=== PATIENT | female | born 1940 | race Caucasian/White ===

== ENCOUNTER 2022-05-06 06:46 | Inpatient (IN) | payer MEDICARE, OTHER ==
[~2022-05-06] VITALS: Ht 162.6 cm; Wt 68.2 kg
[~2022-05-06 06:46] MED LIST: CALCIUM PO; CHOL10002 PO; DOCU-28 PO; FERR-116 PO; HYDR-3965 PO; IBUP-1985 PO; MAGN400C PO; MULT-342 PO; RANI-648 PO; SIMV-45 PO; TRAV5DRO EACHEYE; TRIA1CAP88 PO; TRU BIOTICS PO; WALKERFR
[2022-05-06] MEDS ORDERED: albuterol 2.5 MG/3 ML nebule CONTNEB PRN (10:35)
[2022-05-06] MEDS ORDERED: methylPREDNISolone sod succ 125mg/2ml vial IV ONE (10:35)
[2022-05-06] MEDS ORDERED: magnesium 2GM in 50ml NS 50 ML IV ONE (10:35)
--- NOTE | 2022-05-06 11:02 | NUR ---
PT PLACED ON 2L NC, RA SAT 88-89%. DR. ADHIKARI MADE AWARE.
[2022-05-06] MEDS ORDERED: CefTRIAXone/D5W-Rocephin 1gm 50 ML IV ONE (11:10)
[2022-05-06 11:15] LABS: CLARITY,URINE CLEAR (Clear); COLOR,URINE YELLOW (Yellow); GLUCOSE, URINE NEGATIVE (Neg); KETONES,URINE NEGATIVE (Neg); LEUKOCYTE ESTERASE ,URINE NEGATIVE (Neg); NITRITES, URINE NEGATIVE (Neg); OCCULT BLOOD,URINE NEGATIVE (Neg); PH,URINE 5.5 (4.8-8.0); PROTEIN,URINE NEGATIVE (Neg); UROBILINOGEN,URINE 0.2 E.U/dL (0.2-1.0)
[2022-05-06 11:16] LABS: UA COLLECTION TYPE CLN CATCH MIDSTREAM
[2022-05-06 11:30] LABS: BASOPHILS % (AUTO) 0.5 % (0-1); EOSINOPHILS % (AUTO) 0.4 % (0-6); HEMATOCRIT 36.4 % (35.0-45.0); HEMOGLOBIN 12.7 g/dl (12.0-16.0); LYMPHOCYTES # (AUTO) 0.5 X10'3 (1.1-4.8); LYMPHOCYTES % (AUTO) 6.6 % (21-51); MEAN CORPUSCULAR HEMOGLOBIN 35.5 PG (27.0-31.0); MEAN CORPUSCULAR HGB CONC 34.9 g/dL (33.0-36.5); MEAN CORPUSCULAR VOLUME 101.8 FL (78-98); MEAN PLATELET VOLUME 7.2 FL (7.4-10.4); MONOCYTES # (AUTO) 0.8 X10'3 (0-0.9); MONOCYTES % (AUTO) 10.5 % (2-12); NEUTROPHILS # (AUTO) 6.3 X10'3 (1.8-7.7); PLATELET COUNT 392 X10'3 (140-440); RED BLOOD COUNT 3.58 X10'6 (4.20-5.60); RED CELL DISTRIBUTION WIDTH 13.4 % (11.5-14.5); WHITE BLOOD COUNT 7.7 X10'3 (4.5-11.0)
[2022-05-06 11:43] LABS: ALANINE AMINOTRANSFERASE 18 U/L (12-78); ALBUMIN 3.3 G/DL (3.4-5.0); ALBUMIN/GLOBULIN RATIO 0.9 (1.1-1.5); ALKALINE PHOSPHATASE 88 IU/L (46-116); ANION GAP 12 (8-16); ASPARTATE AMINO TRANSFERASE 25 U/L (10-37); BILIRUBIN,TOTAL 0.4 MG/DL (0.1-1.0); BLOOD UREA NITROGEN 25 MG/DL (7-18); CALCIUM 8.9 MG/DL (8.5-10.1); CHLORIDE 94 MMOL/L (99-107); CREATININE 1.47 MG/DL (0.40-0.90); GLUCOSE 147 MG/DL (70-104); MAGNESIUM 2.2 MG/DL (1.5-2.4); SODIUM 134 MMOL/L (135-145); TOTAL CARBON DIOXIDE 28.4 MMOL/L (24-32); TOTAL PROTEIN 6.8 G/DL (6.4-8.2); eGFR 34 ML/MIN
[2022-05-06 11:47] LABS: POTASSIUM 2.8 MMOL/L (3.5-5.1)
[2022-05-06] MEDS ORDERED: POTASSIUM BICARB 20meq eff tab 20 MEQ TABLET.EFF PO STA (11:55)
[2022-05-06] MEDS ORDERED: mag hydrox/Alum hydrox/simeth 30ml oral suspension PO PRN (14:15)
[2022-05-06] MEDS ORDERED: potassium CL 10mEq/100ml bag 100 ML IV PRN (14:15)
[2022-05-06] MEDS ORDERED: furosemide 10 MG/1 ML 10ml inj IV ONE (14:15)
[2022-05-06] MEDS ORDERED: PERFLUTREN PROTEIN-A MICROSPHR (Optison) 0.22 MG/ML 3ML VIAL IV ONE (14:15)
[2022-05-06] MEDS ORDERED: acetaminophen 325mg tablet PO PRN (14:15)
[2022-05-06] MEDS ORDERED: magnesium 2GM in 50ml NS 50 ML IV PRN (14:15)
[2022-05-06] MEDS ORDERED: ondansetron/PF 4mg/2ml inj IV PRN (14:15)
[2022-05-06] MEDS ORDERED: magnesium 4gm in 100ml NS 100 ML IV PRN (14:15)
[2022-05-06] MEDS ORDERED: magnesium hydroxide 30ml (MOM) UD suspension PO PRN (14:15)
[2022-05-06] MEDS ORDERED: POTASSIUM BICARB 20meq eff tab 20 MEQ TABLET.EFF PO PRN (14:15)
[2022-05-06] MEDS ORDERED: magnesium Cl slow-release 64mg tablet PO PRN (14:15)
[2022-05-06] MEDS ORDERED: METO25TA6 PO (14:47)
[2022-05-06] MEDS ORDERED: ALBU17AE26 INH (14:47)
[2022-05-06] MEDS ORDERED: ALLO100T PO (14:47)
[2022-05-06] MEDS ORDERED: HYDR500C2 PO (14:48)
[2022-05-06] MEDS: ipratropium/albuterol 3ml nebule NEB SCH ×3 (15:56→23:19)
--- NOTE | 2022-05-06 15:58 | NUR ---
PT TO BSC WITH STANDBY ASSISTANCE.
--- NOTE | 2022-05-06 16:06 | NUR ---
TELEPHONE REPORT TO SAIDA ARREDONDO
--- NOTE | 2022-05-06 16:37 | NUR ---
Received patient to room 3013B via wheelchair accompanied by x1 staff and daughter. Patient is alert and oriented. Denies nay pain or discomfort but did c/o sob with exertion. Oriented patient to room and call light. Call light placed within patient's reach. Bed low and locked.
[2022-05-06] MEDS ORDERED: albuterol 2.5 MG/3 ML nebule NEB SCH (17:00)
[2022-05-06 17:08] VITALS: BP 119/57
[2022-05-06 18:00] VITALS: BP 123/58
--- NOTE | 2022-05-06 18:26 | NUR ---
Problems reprioritized. Patient report given, questions answered & plan of care reviewed with SAIDA Fabian.
--- NOTE | 2022-05-06 18:41 | NUR ---
Patient in room PCU 3013. I have received report from SAIDA Hung and had the opportunity to ask questions and assume patient care.
[2022-05-06] MEDS: K and/or MAG REPLACEMENT MC SCH (20:00)
[2022-05-06] MEDS: docusate sod 100mg capsule PO SCH ×2 (20:34→20:48)
[2022-05-06] MEDS: atorvastatin 20mg tablet PO SCH ×2 (20:34→20:48)
[2022-05-06] MEDS: metoprolol tartrate 25mg tablet PO SCH ×2 (20:40→20:47)
[2022-05-06] MEDS: latanoprost 0.005% 2.5ml ophthalmic drops EACHEYE SCH (21:24)
[2022-05-06 22:00] VITALS: BP 117/50
[2022-05-07 02:00] VITALS: BP 117/54
[2022-05-07] MEDS: ipratropium/albuterol 3ml nebule NEB SCH ×6 (02:34→22:32)
[2022-05-07] MEDS: HYDROcodone/acetaminophen 5mg/325mg tablet PO PRN ×2 (02:54→20:47)
--- NOTE | 2022-05-07 06:33 | NUR ---
Problems reprioritized. Patient report given, questions answered & plan of care reviewed with SAIDA Hung.
--- NOTE | 2022-05-07 06:52 | NUR ---
Patient in room PCU 3013. I have received report from SAIDA Fabian and had the opportunity to ask questions and assume patient care.
[2022-05-07 07:00] VITALS: BP 136/52
[2022-05-07] MEDS: docusate sod 100mg capsule PO SCH ×2 (07:33→20:43)
[2022-05-07] MEDS: multivitamins, therapeutics tablet PO SCH (07:33)
[2022-05-07] MEDS: allopurinol 100mg tablet PO SCH (07:35)
[2022-05-07] MEDS ORDERED: levoFLOXACIN-Levaquin 500mg/D5 100 ML IV SCH (08:00)
[2022-05-07] MEDS: K and/or MAG REPLACEMENT MC SCH ×2 (08:00→20:00)
[2022-05-07] MEDS ORDERED: enoxaparin 40mg/0.4ml syringe SUBCUT SCH (08:00)
[2022-05-07 08:01] LABS: BASOPHILS % (AUTO) 0.1 % (0-1); EOSINOPHILS % (AUTO) 0 % (0-6); HEMATOCRIT 36.9 % (35.0-45.0); HEMOGLOBIN 12.3 g/dl (12.0-16.0); LYMPHOCYTES # (AUTO) 0.4 X10'3 (1.1-4.8); LYMPHOCYTES % (AUTO) 4.1 % (21-51); MEAN CORPUSCULAR HEMOGLOBIN 34.3 PG (27.0-31.0); MEAN CORPUSCULAR HGB CONC 33.4 g/dL (33.0-36.5); MEAN CORPUSCULAR VOLUME 102.9 FL (78-98); MEAN PLATELET VOLUME 7.4 FL (7.4-10.4); MONOCYTES # (AUTO) 0.8 X10'3 (0-0.9); MONOCYTES % (AUTO) 7.9 % (2-12); NEUTROPHILS # (AUTO) 9.3 X10'3 (1.8-7.7); NEUTROPHILS % (AUTO) 87.9 % (42-75); PLATELET COUNT 468 X10'3 (140-440); RED BLOOD COUNT 3.59 X10'6 (4.20-5.60); RED CELL DISTRIBUTION WIDTH 13.3 % (11.5-14.5); WHITE BLOOD COUNT 10.5 X10'3 (4.5-11.0)
[2022-05-07 08:35] LABS: ALBUMIN 2.9 G/DL (3.4-5.0); ANION GAP 9 (8-16); BLOOD UREA NITROGEN 28 MG/DL (7-18); BUN/CREATININE RATIO 20.3 (6.6-38.0); CALCIUM 9.1 MG/DL (8.5-10.1); CHLORIDE 95 MMOL/L (99-107); CREATININE 1.38 MG/DL (0.40-0.90); GLUCOSE 126 MG/DL (70-104); MAGNESIUM 2.6 MG/DL (1.5-2.4); POTASSIUM 3.2 MMOL/L (3.5-5.1); SODIUM 135 MMOL/L (135-145); TOTAL CARBON DIOXIDE 31.3 MMOL/L (24-32); eGFR 37 ML/MIN
[2022-05-07] MEDS: POTASSIUM BICARB 20meq eff tab 20 MEQ TABLET.EFF PO PRN ×3 (09:24→17:59)
--- NOTE | 2022-05-07 09:51 | NUR ---
PAGER ID: [phone] MESSAGE: [id number]- Tete Hauser- asking for something for cough. cough drop? also c/o headache. ok to order Tylenol for mild pain?- Thank you- Rae [id number]
[2022-05-07 11:54] VITALS: BP_SYST 129; BP_SYST 136; BP_DIAS 52; BP_DIAS 57
[2022-05-07] MEDS ORDERED: furosemide 40mg/4ml inj IV ONE (13:30)
--- NOTE | 2022-05-07 13:59 | NUR ---
Patient down to nuc med.
--- NOTE | 2022-05-07 14:38 | NUR ---
Patient back to room.
[2022-05-07 15:00] VITALS: BP 109/51
--- NOTE | 2022-05-07 15:08 | NUR ---
PAGER ID: [phone] MESSAGE: [id number]- Tete Hauser- positive blood culture Gram + cocci in clusters in anaerobic bottle drawn on 05/06/22 @ 1108 at IV start. - Rae [phone]
[2022-05-07 18:00] VITALS: BP 123/55
--- NOTE | 2022-05-07 18:35 | NUR ---
Problems reprioritized. Patient report given, questions answered & plan of care reviewed with SAIDA Lange.
[2022-05-07] MEDS: atorvastatin 20mg tablet PO SCH (20:43)
[2022-05-07] MEDS: metoprolol tartrate 25mg tablet PO SCH (20:46)
[2022-05-07] MEDS: latanoprost 0.005% 2.5ml ophthalmic drops EACHEYE SCH (20:46)
[2022-05-07 22:00] VITALS: BP 105/53
[2022-05-08 02:00] VITALS: BP 111/44
[2022-05-08] MEDS: ipratropium/albuterol 3ml nebule NEB SCH ×6 (03:00→22:56)
[2022-05-08 06:00] VITALS: BP 138/65
--- NOTE | 2022-05-08 06:10 | NUR ---
Problems reprioritized. Patient report given, questions answered & plan of care reviewed with Lou CINTRON. Addendum: 05/08/22 at 0610 by Anisa Miller RN Amended: Links added.
--- NOTE | 2022-05-08 06:25 | NUR ---
Patient in room PCU 3013B. I have received report from Anisa CINTRON and had the opportunity to ask questions and assume patient care.
[2022-05-08 07:14] LABS: BASOPHILS % (AUTO) 0.4 % (0-1); EOSINOPHILS % (AUTO) 0.3 % (0-6); HEMATOCRIT 37.8 % (35.0-45.0); HEMOGLOBIN 12.8 g/dl (12.0-16.0); LYMPHOCYTES # (AUTO) 1.2 X10'3 (1.1-4.8); LYMPHOCYTES % (AUTO) 13.6 % (21-51); MEAN CORPUSCULAR HGB CONC 33.7 g/dL (33.0-36.5); MEAN CORPUSCULAR VOLUME 103.9 FL (78-98); MEAN PLATELET VOLUME 7.1 FL (7.4-10.4); MONOCYTES # (AUTO) 0.8 X10'3 (0-0.9); MONOCYTES % (AUTO) 9.8 % (2-12); NEUTROPHILS # (AUTO) 6.6 X10'3 (1.8-7.7); NEUTROPHILS % (AUTO) 75.9 % (42-75); PLATELET COUNT 497 X10'3 (140-440); RED BLOOD COUNT 3.64 X10'6 (4.20-5.60); RED CELL DISTRIBUTION WIDTH 13.4 % (11.5-14.5); WHITE BLOOD COUNT 8.7 X10'3 (4.5-11.0)
[2022-05-08 07:24] LABS: ANION GAP 8 (8-16); BLOOD UREA NITROGEN 30 MG/DL (7-18); BUN/CREATININE RATIO 18.3 (6.6-38.0); CALCIUM 9.1 MG/DL (8.5-10.1); CHLORIDE 95 MMOL/L (99-107); CREATININE 1.64 MG/DL (0.40-0.90); GLUCOSE 96 MG/DL (70-104); MAGNESIUM 2.7 MG/DL (1.5-2.4); POTASSIUM 3.4 MMOL/L (3.5-5.1); SODIUM 136 MMOL/L (135-145); TOTAL CARBON DIOXIDE 33.2 MMOL/L (24-32); eGFR 30 ML/MIN
[2022-05-08] MEDS: K and/or MAG REPLACEMENT MC SCH ×2 (08:00→20:00)
[2022-05-08] MEDS: docusate sod 100mg capsule PO SCH ×3 (08:14→21:15)
[2022-05-08] MEDS: allopurinol 100mg tablet PO SCH (08:14)
[2022-05-08] MEDS: multivitamins, therapeutics tablet PO SCH (08:14)
[2022-05-08] MEDS: metoprolol tartrate 25mg tablet PO SCH ×2 (08:17→21:14)
[2022-05-08] MEDS: furosemide 40mg/4ml inj IV SCH (08:18)
[2022-05-08] MEDS: HYDROcodone/acetaminophen 5mg/325mg tablet PO PRN ×2 (08:19→21:14)
[2022-05-08] MEDS: enoxaparin 30mg/0.3ml syringe SUBCUT SCH (08:32)
[2022-05-08] MEDS: levoFLOXACIN-Levaquin 250mg/D5 50 ML IV SCH (10:02)
[2022-05-08 11:00] VITALS: BP 138/65
--- NOTE | 2022-05-08 14:03 | NUR ---
Problems reprioritized. Patient report given, questions answered & plan of care reviewed with Sandie CINTRON.
[2022-05-08 15:00] VITALS: BP 124/64
[2022-05-08 18:00] VITALS: BP 133/65
[2022-05-08] MEDS: POTASSIUM BICARB 20meq eff tab 20 MEQ TABLET.EFF PO PRN (21:14)
[2022-05-08] MEDS: atorvastatin 20mg tablet PO SCH (21:15)
[2022-05-08] MEDS: latanoprost 0.005% 2.5ml ophthalmic drops EACHEYE SCH (21:16)
[2022-05-08 22:00] VITALS: BP 114/55
[2022-05-09] MEDS: POTASSIUM BICARB 20meq eff tab 20 MEQ TABLET.EFF PO PRN ×2 (01:28→05:16)
[2022-05-09 02:00] VITALS: BP 110/57
[2022-05-09] MEDS: ipratropium/albuterol 3ml nebule NEB SCH ×4 (03:13→14:25)
[2022-05-09 06:51] LABS: ALBUMIN 3.1 G/DL (3.4-5.0); ANION GAP 6 (8-16); BLOOD UREA NITROGEN 28 MG/DL (7-18); BUN/CREATININE RATIO 18.5 (6.6-38.0); CALCIUM 9.1 MG/DL (8.5-10.1); CHLORIDE 93 MMOL/L (99-107); CREATININE 1.51 MG/DL (0.40-0.90); GLUCOSE 102 MG/DL (70-104); MAGNESIUM 2.3 MG/DL (1.5-2.4); POTASSIUM 3.7 MMOL/L (3.5-5.1); SODIUM 134 MMOL/L (135-145); TOTAL CARBON DIOXIDE 34.9 MMOL/L (24-32); eGFR 33 ML/MIN
[2022-05-09 06:53] LABS: BASOPHILS % (AUTO) 0.5 % (0-1); EOSINOPHILS # (AUTO) 0.1 X10'3 (0-0.9); EOSINOPHILS % (AUTO) 1.2 % (0-6); HEMATOCRIT 38.7 % (35.0-45.0); HEMOGLOBIN 13.1 g/dl (12.0-16.0); LYMPHOCYTES # (AUTO) 1.2 X10'3 (1.1-4.8); LYMPHOCYTES % (AUTO) 14.7 % (21-51); MEAN CORPUSCULAR HEMOGLOBIN 34.8 PG (27.0-31.0); MEAN CORPUSCULAR HGB CONC 33.8 g/dL (33.0-36.5); MEAN CORPUSCULAR VOLUME 103.1 FL (78-98); MEAN PLATELET VOLUME 7.2 FL (7.4-10.4); MONOCYTES % (AUTO) 11.5 % (2-12); NEUTROPHILS # (AUTO) 6.1 X10'3 (1.8-7.7); NEUTROPHILS % (AUTO) 72.1 % (42-75); PLATELET COUNT 509 X10'3 (140-440); RED BLOOD COUNT 3.75 X10'6 (4.20-5.60); RED CELL DISTRIBUTION WIDTH 13.2 % (11.5-14.5); WHITE BLOOD COUNT 8.5 X10'3 (4.5-11.0)
[2022-05-09 07:00] VITALS: BP 120/57
[2022-05-09] MEDS: levoFLOXACIN-Levaquin 250mg/D5 50 ML IV SCH (07:25)
[2022-05-09] MEDS: enoxaparin 30mg/0.3ml syringe SUBCUT SCH (07:26)
[2022-05-09] MEDS: docusate sod 100mg capsule PO SCH (07:27)
[2022-05-09] MEDS: metoprolol tartrate 25mg tablet PO SCH (07:27)
[2022-05-09] MEDS: multivitamins, therapeutics tablet PO SCH (07:28)
[2022-05-09] MEDS: HYDROcodone/acetaminophen 5mg/325mg tablet PO PRN (07:28)
[2022-05-09] MEDS: furosemide 40mg/4ml inj IV SCH (07:28)
[2022-05-09] MEDS: allopurinol 100mg tablet PO SCH (07:29)
[2022-05-09 11:00] VITALS: BP 104/57
--- NOTE | 2022-05-09 11:00 | NUR ---
Left AC IV infiltrated. IV removed, catheter intact. Patient should be getting discharged today, so will hold off on putting another IV in for now.
--- NOTE | 2022-05-09 13:21 | NUR ---
PAGE PAGER ID: [phone] MESSAGE: [id number] Tete Hauser: Patient did good with PT and 02 has been low 90s on room air both ambulatory and at rest. Discharge? Thanks! Sandie [facility] [id number]
[2022-05-09] MEDS ORDERED: FURO-149 PO (14:07)
[2022-05-09] MEDS ORDERED: LEVO500T90 PO (14:07)
[2022-05-09] MEDS ORDERED: CARV3.12 PO (14:07)
[2022-05-09] MEDS ORDERED: POTA-207 PO (14:07)
== END 2022-05-09 15:30 | disposition home health service (06) | DRG 189 ==
LOC: ER 06:46 → ED HOLD 14:14 → PCU 3S 16:32
PROVIDERS: ADMIT Family Medicine; ATTEND Family Medicine
PROC: CB121ZZ Planar Nuclear Medicine Imaging of Lungs and Bronchi using Technetium 99m (Tc-99m) (ICD-10-PCS; principal; 2022-05-07)
DX: J96.01 Acute respiratory failure with hypoxia (principal); I50.33 Acute on chronic diastolic (congestive) heart failure; I13.0 Hypertensive heart and chronic kidney disease with heart failure and stage 1 through stage 4 chronic kidney disease, or unspecified chronic kidney disease; N17.9 Acute kidney failure, unspecified; R78.81 Bacteremia; N18.9 Chronic kidney disease, unspecified; J20.9 Acute bronchitis, unspecified; E87.6 Hypokalemia; D46.9 Myelodysplastic syndrome, unspecified; E78.00 Pure hypercholesterolemia, unspecified; Z96.652 Presence of left artificial knee joint; K21.9 Gastro-esophageal reflux disease without esophagitis; M10.9 Gout, unspecified; R00.0 Tachycardia, unspecified; R79.89 Other specified abnormal findings of blood chemistry; Z91.013 Allergy to seafood
CPT/HCPCS: 36415; 71045; 78582; 80048; 80053; 81003; 83605; 83735; 83880; 84132; 84145; 85025; 87040; 87077; 87186; 87502; 87503; 87635; 93005; 93306; 93970; 94640; 94664; 94668; 94760; 96365; 96366; 96368; 96375; 97116; 97161; 97530; 99285; A9539; A9540; C9803; G0378; J0696; J1650; J1940; J1956; J2930; J3475; J7040

== ENCOUNTER 2022-05-31 18:58 | Emergency (ER) | payer MEDICARE, OTHER ==
[~2022-05-31] VITALS: Ht 161.3 cm; Wt 81.8 kg
[~2022-05-31 18:58] MED LIST changes: +ALBU17AE26 INH; +ALLO100T PO; -CALCIUM PO; +CARV3.12 PO; -CHOL10002 PO; -FERR-116 PO; +FURO-149 PO; +HYDR500C2 PO; -IBUP-1985 PO; +LEVO500T90 PO; -MAGN400C PO; +METO25TA6 PO; +POTA-207 PO; -RANI-648 PO; -TRIA1CAP88 PO; -TRU BIOTICS PO; -WALKERFR
[2022-05-31] MEDS ORDERED: ondansetron/PF 4mg/2ml inj IV ONE (20:00)
[2022-05-31] MEDS: morphine 2 MG/ML inj. syringe IV PRN ×2 (20:16→22:18)
[2022-05-31 20:22] LABS: BASOPHILS % (AUTO) 0.3 % (0-1); EOSINOPHILS % (AUTO) 0.1 % (0-6); HEMOGLOBIN 13.6 g/dl (12.0-16.0); LYMPHOCYTES # (AUTO) 0.3 X10'3 (1.1-4.8); LYMPHOCYTES % (AUTO) 2.8 % (21-51); MEAN CORPUSCULAR HEMOGLOBIN 34.4 PG (27.0-31.0); MEAN CORPUSCULAR HGB CONC 33.3 g/dL (33.0-36.5); MEAN CORPUSCULAR VOLUME 103.3 FL (78-98); MEAN PLATELET VOLUME 7.4 FL (7.4-10.4); MONOCYTES # (AUTO) 0.7 X10'3 (0-0.9); MONOCYTES % (AUTO) 5.9 % (2-12); NEUTROPHILS # (AUTO) 11.3 X10'3 (1.8-7.7); NEUTROPHILS % (AUTO) 90.9 % (42-75); PLATELET COUNT 419 X10'3 (140-440); RED BLOOD COUNT 3.97 X10'6 (4.20-5.60); RED CELL DISTRIBUTION WIDTH 13.9 % (11.5-14.5); WHITE BLOOD COUNT 12.4 X10'3 (4.5-11.0)
[2022-05-31] MEDS ORDERED: FEBU40TA3 PO (20:34)
[2022-05-31 20:36] LABS: ALANINE AMINOTRANSFERASE 12 U/L (12-78); ALBUMIN 3.6 G/DL (3.4-5.0); ALBUMIN/GLOBULIN RATIO 1.1 (1.1-1.5); ALKALINE PHOSPHATASE 66 IU/L (46-116); ANION GAP 9 (8-16); ASPARTATE AMINO TRANSFERASE 23 U/L (10-37); BILIRUBIN,TOTAL 0.7 MG/DL (0.1-1.0); BLOOD UREA NITROGEN 26 MG/DL (7-18); BUN/CREATININE RATIO 21.3 (6.6-38.0); CALCIUM 9.1 MG/DL (8.5-10.1); CHLORIDE 101 MMOL/L (99-107); CREATININE 1.22 MG/DL (0.40-0.90); GLUCOSE 145 MG/DL (70-104); LIPASE 93 U/L (73-393); SODIUM 144 MMOL/L (135-145); TOTAL CARBON DIOXIDE 34.4 MMOL/L (24-32); eGFR 42 ML/MIN
--- NOTE | 2022-05-31 20:41 | NUR ---
Critical K+ 3.1. Dr. rBuce notified.
[2022-05-31 21:00] LABS: CLARITY,URINE CLEAR (Clear); COLOR,URINE YELLOW (Yellow); GLUCOSE, URINE NEGATIVE (Neg); KETONES,URINE 15 mg/dl (Neg); LEUKOCYTE ESTERASE ,URINE NEGATIVE (Neg); NITRITES, URINE NEGATIVE (Neg); OCCULT BLOOD,URINE NEGATIVE (Neg); PH,URINE 6.5 (4.8-8.0); PROTEIN,URINE NEGATIVE (Neg); UROBILINOGEN,URINE 0.2 E.U/dL (0.2-1.0)
[2022-05-31 21:04] LABS: UA COLLECTION TYPE NON-SPECIFIED
--- NOTE | 2022-05-31 21:11 | NUR ---
Pt asleep in room.
[2022-05-31] MEDS ORDERED: levoFLOXACIN 250mg tablet PO ONE ×2 (21:45→22:05)
[2022-05-31] MEDS ORDERED: metroNIDAZOLE 500mg tablet PO ONE (21:55)
[2022-05-31] MEDS ORDERED: LEVO500T90 PO (22:03)
[2022-05-31] MEDS ORDERED: POLY119P2 PO (22:03)
[2022-05-31] MEDS ORDERED: METR-159 PO (22:03)
[2022-05-31 22:26] VITALS: BP 146/65
== END 2022-05-31 22:55 | disposition home or self-care (01) ==
LOC: ER 18:59
DX: K59.00 Constipation, unspecified (principal); K52.9 Noninfective gastroenteritis and colitis, unspecified; R11.2 Nausea with vomiting, unspecified; E78.00 Pure hypercholesterolemia, unspecified; I10 Essential (primary) hypertension; M10.9 Gout, unspecified; Z98.890 Other specified postprocedural states; Z88.1 Allergy status to other antibiotic agents; Z79.2 Long term (current) use of antibiotics; Z79.899 Other long term (current) drug therapy
CPT/HCPCS: 36415; 74176; 80053; 81003; 83605; 83690; 85025; 87040; 96374; 96375; 96376; 99285; J2270; J2405

== ENCOUNTER 2022-06-02 10:37 | Emergency (ER) | payer MEDICARE, OTHER ==
[~2022-06-02] VITALS: Ht 160 cm; Wt 83.2 kg
[~2022-06-02 10:37] MED LIST changes: +FEBU40TA3 PO; +METR-159 PO; +POLY119P2 PO
[2022-06-02] MEDS ORDERED: polyethylene glycol 3350 17gm powd pack PO STA (14:14)
[2022-06-02] MEDS ORDERED: lactulose 20gm/30ml cup PO ONE (14:15)
[2022-06-02] MEDS ORDERED: methylnaltrexone br 12mg/0.6ml inj***SubQ only SQ ONE (14:35)
--- NOTE | 2022-06-02 14:46 | NUR ---
Patient on bedside commode, threw up at this time s/p medication administration. no BM yet
[2022-06-02] MEDS ORDERED: bisacodyl 10mg suppository rectal RC STA (15:10)
[2022-06-02 16:00] VITALS: BP 138/59
--- NOTE | 2022-06-02 17:05 | NUR ---
patient had a BM at this time, states she feels as though there is more and wishes to stay for a little longer for eval
[2022-06-02] MEDS ORDERED: MAGN296S68 PO (17:21)
[2022-06-02] MEDS ORDERED: POLY119P2 PO (17:21)
--- NOTE | 2022-06-02 18:14 | NUR ---
palmira had another BM, cleared for dishcarge
== END 2022-06-02 18:24 | disposition home or self-care (01) ==
LOC: ER 10:38
DX: K56.41 Fecal impaction (principal); E78.00 Pure hypercholesterolemia, unspecified; I10 Essential (primary) hypertension; M10.9 Gout, unspecified; Z98.890 Other specified postprocedural states; Z79.2 Long term (current) use of antibiotics; Z79.899 Other long term (current) drug therapy; Z88.1 Allergy status to other antibiotic agents; Z91.013 Allergy to seafood
CPT/HCPCS: 74018; 96372; 99284; J2212

== ENCOUNTER 2025-09-27 12:50 | Inpatient (IN) | payer MEDICARE, OTHER ==
[~2025-09-27] VITALS: Ht 162.6 cm; Wt 60.3 kg
[~2025-09-27 12:50] MED LIST changes: -ALBU17AE26 INH; -ALLO100T PO; -FEBU40TA3 PO; +FEBU40TA6 PO; -LEVO500T90 PO; +MAGN296S68 PO; -METO25TA6 PO; -METR-159 PO; -POTA-207 PO
[2025-09-27 13:28] LABS: RED CELL DISTRIBUTION WIDTH 18.0 % (11.5-14.5)
[2025-09-27 13:30] LABS: MEAN PLATELET VOLUME 7.6 FL (7.4-10.4)
[2025-09-27 13:42] LABS: CREATININE 4.20 MG/DL (0.40-0.90); TOTAL CARBON DIOXIDE 23.8 MMOL/L (24-32); eCRCL 9 ML/MIN; eGFR 10 ML/MIN
[2025-09-27] MEDS ORDERED: TRIA1CAP88 PO (14:14)
[2025-09-27] MEDS ORDERED: FURO80TA3 PO (14:14)
[2025-09-27] MEDS ORDERED: METO-395 PO (14:14)
[2025-09-27] MEDS ORDERED: OMEP20TA23 PO (14:14)
[2025-09-27] MEDS ORDERED: HYDR-3973 PO (14:14)
[2025-09-27 15:21] LABS: BANDS% (MANUAL) 2.0 % (0-10); LYMPHOCYTES % (MANUAL) 1.0 % (21-51); MONOCYTES % (MANUAL) 4.0 % (2-12); NEUTROPHILS % (MANUAL) 93.0 % (42-75); PLATELET ESTIMATE INCREASED
--- NOTE | 2025-09-27 16:36 | Physician Documentation ---
History of Present Illness ~ Chief Complaint: Abdominal Pain Stated Complaint: FAILURE TO THRIVE Time Seen by MD: 13:15 OK to notify your PCP?: Yes Mode of Arrival: EMS HPI 84-year-old female patient with nonspecified blood cancer for that she has stopped taking medication for months came to the emergency room for weakness not able to eat well and some nausea and vomiting yesterday. No diarrhea but maybe constipated. She has no prior surgery. She is not taking any medications. As we talked to the patient and her family member they decided that the patient wants to forego any treatment for her blood cancer and will like to have hospice consultation and care. Medication Reconciliation Allergies: Uncoded Allergies: LEVOFLAXIN (Allergy, Mild, nausea, 05/31/22) fish (Adverse Reaction, Mild, nausea, 12/27/16) Scheduled Furosemide (Furosemide), 1 TAB PO DAILY, (Reported) Metoprolol Succinate (Metoprolol Succinate), 1 TAB PO DAILY, (Reported) Omeprazole Magnesium (Prilosec Otc), 1 TAB PO DAILY, (Reported) Simvastatin (Simvastatin), 1 TAB PO HS, (Reported) Triamterene/Hydrochlorothiazid (Triamterene-Hctz 37.5-25 Mg Cp), 1 CAP PO DAILY, (Reported) Scheduled PRN Hydrocodone Bit/Acetaminophen (Hydrocodone-Apap 10-325 Tablet), 1 TAB PO QID PRN PRN for pain, (Reported) Discontinued Medications Carvedilol (Coreg), 1 TAB PO Q12H Discontinued Reason: patient no longer taking Docusate Sodium (Colace), 1 CAP PO DAILY, (Reported) Discontinued Reason: patient no longer taking Febuxostat (Febuxostat), 1 TAB PO DAILY, (Reported) Discontinued Reason: patient no longer taking Furosemide (Lasix), 40 MG PO DAILY Discontinued Reason: patient no longer taking Hydrocodone Bit/Acetaminophen 5/325 MG (Beaumont 5/325 MG), 1 TABLET PO BID PRN for pain, (Reported) Discontinued Reason: patient no longer taking Hydroxyurea (Hydroxyurea), 1 CAP PO DAILY, (Reported) Discontinued Reason: patient no longer taking Magnesium Citrate (MAGNESIUM CITRATE oral solution), 296 ML PO ONCE Discontinued Reason: patient no longer taking Multivitamins (Multi-Day Vitamin), 1 TAB PO DAILY, (Reported) Discontinued Reason: patient no longer taking Polyethylene Glycol 3350 (Miralax), 17 GM PO DAILY Discontinued Reason: patient no longer taking Polyethylene Glycol 3350 (Miralax), 17 GM PO DAILY Discontinued Reason: patient no longer taking Travoprost (Travatan Z), 1 DROP EACHEYE HS, (Reported) Discontinued Reason: patient no longer taking Past Medical History Past Medical History: High Cholesterol, Hypertension, Bronchitis, Constipation, Gout Past Surgical History: tonsillectomy Other Past Surgical History: Herniorrhaphy Alcohol Use: Other Lives In: Home Occupation: retired Review of Systems ROS As stated above in the HPI, otherwise all systems are reviewed and negative. Physical Exam Vital Signs: Temperature: 97.6, Source: Oral, Heart Rate: 91, Respiratory Rate: 18, BP: 108/48, Pulse Oximetry: 94, Weight: 60.300 Physical Exam Reviewed vital signs and they are well within normal range except soft blood pressure Const: Not in acute cardiopulmonary distress but weak and pale. Head: Atraumatic Eyes: Normal Conjunctiva ENT: Normal External Ears, Nose and Mouth. Moist mucous membranes Neck: Full range of motion. No meningismus Resp: Clear to auscultation bilaterally. Normal work of breathing Cardio: Heart rate is 90 per minute. Regular rate and rhythm, no murmurs. Skin well perfused Abd: Soft, non-tender, non-distended. Normal bowel sounds. No rebound or guarding Skin: No petechiae or rashes. Warm and dry Back: No midline or flank tenderness Ext: No cyanosis, or edema Neuro: Awake and alert Psych: Normal Mood and Affect Progress Results/Orders Results/Orders Orders - CHILANGO COULTER MD Urinalysis, Cult If Indicated (09/27/25 13:06) Prep Cook (09/27/25 14:03) Page Hospitalist (09/27/25 16:37) Abdomen,Single View(Kub) (09/27/25 17:18) Completed Orders - CHILANGO COULTER MD Cbc/Diff (09/27/25 13:06) Amylase (09/27/25 13:06) Lipase (09/27/25 13:06) CMP (09/27/25 13:06) Man Diff (09/27/25 13:15) Normal Saline 1000ml (0.9% Sodium Chlori (09/27/25 16:40) Abdomen,Single View(Kub) (09/27/25 17:18) Pathology Review (09/27/25 13:15) Vital Signs 09/27/25 09/27/25 09/27/25 13:02 15:06 17:30 Temp 97.6 Pulse 77 91 99 Resp 18 18 14 B/P (MAP) 121/75 108/48 (68) 115/51 (72) Pulse Ox 95 94 93 Laboratory Tests Test 09/27/25 13:15 White Blood Count 32.2 *H Red Blood Count 4.40 Hemoglobin 11.9 L Hematocrit 36.5 Mean Corpuscular Volume 82.9 Mean Corpuscular Hemoglobin 27.0 Mean Corpuscular Hemoglobin Concent 32.5 L Red Cell Distribution Width 18.0 H Platelet Count 958 H Mean Platelet Volume 7.6 Neutrophils (%) (Auto) 92.6 H Lymphocytes (%) (Auto) 2.9 L Monocytes (%) (Auto) 4.2 Eosinophils (%) (Auto) 0.1 Basophils (%) (Auto) 0.2 Neutrophils # (Auto) 29.8 H Lymphocytes # (Auto) 0.9 L Monocytes # (Auto) 1.4 H Eosinophils # (Auto) 0.0 Basophils # (Auto) 0.1 CBC Comment Differential Total Cells Counted 100 Neutrophils % (Manual) 93.0 H Band Neutrophils % 2.0 Lymphocytes % (Manual) 1.0 L Monocytes % (Manual) 4.0 Platelet Estimate Increased Red Blood Cell Morphology Perf Basophilic Stippling Anisocytosis 1+ Hematology Pathologist Comment See note Sodium Level 131 L Potassium Level 4.7 Chloride Level 90 L Carbon Dioxide Level 23.8 L Anion Gap 17 H Blood Urea Nitrogen 119 H Creatinine 4.20 H Estimated GFR/1.73 m2 10 BUN/Creatinine Ratio 28.3 H Glucose Level 97 Calcium Level 8.2 L Total Bilirubin 0.9 Aspartate Amino Transf (AST/SGOT) 18 Alanine Aminotransferase (ALT/SGPT) < 6 L Alkaline Phosphatase 135 H Total Protein 6.5 Albumin 1.9 L Globulin 4.6 H Albumin/Globulin Ratio 0.4 L Amylase Level 104 Lipase 145 H Chemistry Comments Medical Decision Making Additional information obtaine: old records, family Findings During the physical examination, the findings suggestive of acute life- threatening condition such as JVD, tracheal deviation, acidotic breathing, noisy stridorous breath sounds, pulses paradoxus, muffled heart sounds, unequal breath sounds, abdominal rigidity and rebound tenderness, focal neurological deficits, cool clammy skin, severe hypotension, severe tachycardia or bradycardia are absent. Patient is chronically sick-looking but I do not find any acute peritoneal irritation. CBC showed WBC 32.2 H and H11.9 and 36.5 and platelets 958. 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 Sodium 131 potassium 4.7 chloride 90 bicarb 23.8 BUN 119 creatinine 4.20 and glucose 97. We have consulted social human services assistants and hospice and they are working for establishing hospice care. I like to admit the patient for hydration for dehydration. DISCLAIMER Inadvertent spelling and grammatical errors,inadvertent it support engineer errors,syntax errors, grammatical errors, and spelling errors are likely due to EMR/dictation software use and do not reflect on the overall quality of patient care. Note that the electronic time recorded on this note does not necessarily reflect the actual time of the patient encounter. Diff Dx GI Bleed:Consideration: Include: AE fistula Diff Dx Pain:Considerations: Include: AAA Diff Dx N/V/D:Considerations: Include: Appendicitis Diff Dx Rectal:Considerations: Include: Impaction Departure Disposition: ADMITTED INPATIENT Impression: Primary Impression: Dehydration Condition: Guarded Referrals: NO PRIMARY CARE PROVIDER (PCP) Signature Scribe Signature: x Attestation: CHILANGO Gibbs MD Sep 27, 2025 16:36
[2025-09-27] MEDS ORDERED: hyoscyamine 0.125mg TAB.SUBL SL PRN (17:30)
[2025-09-27] MEDS ORDERED: bisacodyl 10mg suppository rectal RC PRN (17:30)
[2025-09-27] MEDS ORDERED: lactulose 20gm/30ml cup PO PRN (17:30)
[2025-09-27] MEDS ORDERED: magnesium citrate 296ml oral solution PO PRN (17:30)
[2025-09-27] MEDS ORDERED: mag hydrox/Alum hydrox/simeth 30ml oral suspension PO PRN (17:30)
--- NOTE | 2025-09-27 17:53 | HISTORY AND PHYSICAL ---
History & Physical Providers to CC ~ History of Present Illness Reason for Admit\Complaint: Myelodysplastic syndrome- severe constipation- comfort care History of Present Illness This is an 84-year-old female who has myelodysplastic syndrome and three months ago stopped taking her chemotherapy- the patient has been losing weight and not eating much the patient is also very weak. The daughter and son-in-law are present and all parties involved are requesting to go home with hospice care in want to get enrolled in hospice for which the ED informs me case management is aware. The patient states he has lower abdominal pain and when I examined her abdomen the midline lower abdominal region is significantly hard and exquisitely tender and in her discussion the patient informs me the last bowel movement she had was three weeks ago. Multiple bowel hygiene regimen medications are ordered and a KUB due to the severity of the exam I have held off an enema to avoid perforation of the bowel. KUB has been obtained. Allergies: Uncoded Allergies: LEVOFLAXIN (Allergy, Mild, nausea, 05/31/22) fish (Adverse Reaction, Mild, nausea, 12/27/16) Home Medications Home Medications Active Reported Prilosec Otc (Omeprazole Magnesium) 20 Mg Tablet.dr 1 Tab PO DAILY 30 Days Metoprolol Succinate 25 Mg Tab.sr.24h 1 Tab PO DAILY 30 Days Triamterene-Hctz 37.5-25 Mg Cp (Triamterene/Hydrochlorothiazid) 37.5 Mg-25 Mg Capsule 1 Cap PO DAILY 30 Days Furosemide 80 Mg Tablet 1 Tab PO DAILY 30 Days Hydrocodone-Apap 10-325 Tablet (Acetaminophen/Hydrocodone Bitart) 10mg/325mg Tablet 1 Tab PO QID PRN PRN 5 Days Simvastatin 40 Mg Tablet 1 Tab PO HS Past Medical History Past Medical History Hypertension, hyperlipidemia, gastroesophageal reflux disease, myelodysplastic syndrome, also gout. Past Surgical History Surgical History Comment Tonsillectomy, appendectomy, left knee surgery, colonoscopy, hernia repair, left knee replacement. Family History Family History: Patient reports no known family medical history. Past Social History Social History Comment Lifelong nonsmoker, rare alcohol intake, no illicit drug use. DNR comfort care ROS ROS Except for positives in the HPI the rest of the 14 point review systems is negative Exam Vitals: Vital Signs Date Time Temp Pulse Resp B/P (MAP) Pulse Ox O2 Delivery O2 Flow Rate FiO2 09/27/25 17:30 99 14 115/51 (72) 93 09/27/25 13:02 97.6 General: Gen. No acute distress alert and oriented 4 Lungs clear to ascultation bilaterally, no wheezes rales or rhonchi appreciated Heart normal sinus rhythm no murmurs rubs or clicks noted Abdomen semi firm with a extremely hard and exquisitely tender midline lower abdominal region bowel sounds are faint Lower extremities no clubbing cyanosis, generalized edema appreciated bilaterally, significantly tender to palpation Diagnostic Data Last Recorded Lab Results: 09/27/25 1315 09/27/25 1315 Problems: (1) Myelodysplastic syndrome Additional Plan # Meylodysplastic Syndrome # severe leukocytosis The patient has stopped chemotherapy Is requesting hospice care PRN: Roxanol/lorazepam/ Levsin # acute stage V renal failure The patient is on comfort care and IV fluids are contraindicated # severe constipation with high probability of stercoral colitis A KUB has been obtained PRN milk of magnesia Scheduled Colace PRN lactulose PRN Dulcolax suppository PRN Mag citrate # DVT prophylaxis Contraindicated the patient is on comfort care I spent a total of 17 minutes on reviewing various resuscitative measures/ ACP with the patient and family at the time of admission. The patient has decided on DNR comfort care- case management work on home hospice Date of Service: Sep 27, 2025 Billing Provider: KWESI BORGES DO Common Visit Codes: [id number] INP/OBS CARE (MOD) Secondary Visit Codes: [id number] CARE PLAN 30 MINUTES KWESI BORGES DO Sep 27, 2025 17:53
[2025-09-27] MEDS: normal saline 1000ml 1,000 ML IV SCH (17:55)
--- NOTE | 2025-09-27 18:45 | RADIOLOGY REPORT ---
Date: 09/27/2025 05:33 PM Examination: DI ABDOMEN,SINGLE VIEW(KUB) History: Constipation Comparison: ABDOMEN,SINGLE VIEW(KUB) on DOS: 06/02/22, CT ABDOMEN PELVIS on DOS: 05/31/22 TECHNIQUE: Frontal views of the abdomen was obtained. FINDINGS: Bowel gas pattern is unremarkable. Moderate colonic stool burden. The lung bases are unremarkable. Questionable fracture in the left superior pubic rami. IMPRESSION: 1. Nonobstructive bowel gas pattern. 2. Questionable fracture in the left superior pubic rami. If there is concern for fracture, consider CT.
[2025-09-27] MEDS: docusate sod 100mg capsule PO SCH ×2 (20:00)
[2025-09-27 22:00] VITALS: BP 131/50; PULSE 106; RESP 14; TEMP 97.2; O2SAT 92
[2025-09-27] MEDS: ondansetron/PF 4mg/2ml inj IV PRN (22:41)
[2025-09-27] MEDS: magnesium hydroxide 30ml (MOM) UD suspension PO PRN (23:51)
[2025-09-28 02:39] VITALS: RESP 14; O2SAT 92
[2025-09-28] MEDS: morphine 10mg/0.5ml (conc. morphine) oral syringe PO PRN (03:39)
[2025-09-28 06:00] VITALS: BP 109/44; PULSE 116; RESP 16; TEMP 98.8; O2SAT 91
[2025-09-28] MEDS: ondansetron 4mg rapidly disintigrating tab PO PRN (06:57)
[2025-09-28] MEDS ORDERED: diazepam inj 5 MG/ML inj. IV PRN (07:40)
[2025-09-28] MEDS: metoclopramide 5 mg/ml inj IV PRN (08:47)
[2025-09-28] MEDS: morphine 4 MG/ML inj SYRINge IV PRN (08:52)
[2025-09-28 10:00] VITALS: BP 88/44; PULSE 60; RESP 6; TEMP 98.2; O2SAT 94
--- NOTE | 2025-09-28 10:10 | PROGRESS NOTE ---
Daily Progress Note Providers to CC ~ Antibiotic Timeout Antibiotic Ordered?: No Subjective When I evaluated the patient the patient was sleeping and resting comfortably the family was pleased that there live one was comfortable she has been given morphine two shortly before my arrival to the floor. The patient is nauseated last evening and received Compazine which did not help Zofran ODT did help some I have added also Reglan IV. The patient did have a smear of a bowel movement and a small bowel movement last evening and family does informed me that the patient has been having essentially smear with the bowel movements that is that has not been three weeks since the patient's last bowel movement Objective Vital Signs Date Time Temp Pulse Resp B/P (MAP) Pulse Ox O2 Delivery O2 Flow Rate FiO2 09/28/25 06:00 98.8 116 16 109/44 (65) 91 Nasal Cannula 1.0 Result Diagram: 09/27/25 1315 09/27/25 1315 Gen sleeping resting comfortably in bed Respiratory no dyspnea or respiratory distress appreciated Neuro no abnormal twitches or abnormal movements appreciated Problem\Assessment\Plan Problems/Diagnosis: (1) Myelodysplastic syndrome # Meylodysplastic Syndrome # severe leukocytosis The patient has stopped chemotherapy Is requesting hospice care PRN: Roxanol/lorazepam/ Levsin # acute stage V renal failure The patient is on comfort care and IV fluids are contraindicated 09/28 IV fluids are ordered by the ED physician at 200 cc an hour which are discontinued today # severe constipation with high probability of stercoral colitis A KUB has been obtained PRN milk of magnesia Scheduled Colace PRN lactulose PRN Dulcolax suppository PRN Mag citrate 09/28 KUB was unremarkable # DVT prophylaxis Contraindicated the patient is on comfort care Disposition: Anticipate transferred to [facility] post acute rehab for hospice care on Tuesday09/30/2025 Date of Service: Sep 28, 2025 Billing Provider: KWESI BORGES DO Common Visit Codes: [id number] INP/OBS CARE(LOW) KWESI BORGES DO Sep 28, 2025 10:10
[2025-09-28 20:00] VITALS: RESP 14
[2025-09-29 05:00] VITALS: PULSE 90; RESP 16; TEMP 98.1
[2025-09-29 10:00] VITALS: BP 80/36; PULSE 104; RESP 15; TEMP 98.2; O2SAT 95
[2025-09-29 10:23] VITALS: RESP 20
--- NOTE | 2025-09-29 14:21 | PROGRESS NOTE ---
Daily Progress Note Providers to CC ~ Antibiotic Timeout Antibiotic Ordered?: No Subjective The patient was sleeping when I went into evaluate her today- family was at bedside and was very pleased that the family member was comfortable Objective Vital Signs Date Time Temp Pulse Resp B/P (MAP) Pulse Ox O2 Delivery O2 Flow Rate FiO2 09/29/25 12:02 16 09/29/25 10:23 Nasal Cannula 3.0 09/29/25 10:00 98.2 104 80/36 (45) 95 Result Diagram: 09/27/25 1315 09/27/25 1315 Gen sleeping resting comfortably in bed Respiratory no dyspnea or respiratory distress appreciated Neuro no abnormal twitches or abnormal movements appreciated Problem\Assessment\Plan Problems/Diagnosis: (1) Myelodysplastic syndrome # Meylodysplastic Syndrome # severe leukocytosis The patient has stopped chemotherapy Is requesting hospice care PRN: Roxanol/lorazepam/ Levsin # acute stage V renal failure The patient is on comfort care and IV fluids are contraindicated 09/28 IV fluids are ordered by the ED physician at 200 cc an hour which are discontinued today # severe constipation with high probability of stercoral colitis A KUB has been obtained PRN milk of magnesia Scheduled Colace PRN lactulose PRN Dulcolax suppository PRN Mag citrate 09/28 KUB was unremarkable # DVT prophylaxis Contraindicated the patient is on comfort care Disposition: transferred to [facility] post acute rehab for comfort care on Tuesday09/30/2025 Date of Service: Sep 29, 2025 Billing Provider: KWESI BORGES DO Common Visit Codes: [id number] INP/OBS CARE(LOW) KWESI BORGES DO Sep 29, 2025 14:21
[2025-09-29 14:29] VITALS: RESP 16
--- NOTE | 2025-09-29 15:10 | Death Certificate Worksheet ---
Certificate Worksheet Date of Date of : Sep 29, 2025 Cause of / Time Intervals Cause of IMMEDIATE CAUSE (Final Disease or *Time Between Onset and condition resulting in ) [Hours (H), Days (D),Week's (W),Month's (M ),Year's (Y)] A) respiratory failure *Time: Days B) failure to thrive *Time: Weeks to months C) *Time: D) *Time: E) *Time: Other Significant Conditions Other Significant Conditions Myelodysplastic syndrome Acute stage five renal failure Operations & Dates Performed If Female, in Last YR.: No Biopsy: No First Time Seen.: Sep 27, 2025 Last time Seen: Sep 29, 2025 [facility]: [place] P: [phone]/F: [phone] License Number [id number] Physicians Mailing Address Hospitalist Mailing Address: [address] [place] [address], [id number] KWESI BORGES DO Sep 29, 2025 15:10
--- NOTE | 2025-09-29 15:15 | DISCHARGE SUMMARY ---
Discharge Summary Providers to CC ~ Discharge Summary Admission Diagnosis: Myodysplastic syndrome/ severe constipation likely stercoral colitis Hospital Course DATE OF ADMISSION: 09/27/2025 DATE OF DISCHARGE: 09/29/2025 Discharge Diagnosis\Comment: Acute respiratory failure Myelodysplastic syndrome with severe leukocytosis Acute stage five renal failure Severe constipation Operations\Procedures: None Consultants: None Complications: None Condition on DC: (At 1457) Discharge Summary: I admitted Mrs. Hauser with the following HPI:This is an 84-year-old female who has myelodysplastic syndrome and three months ago stopped taking her chemotherapy- the patient has been losing weight and not eating much the patient is also very weak. The daughter and son-in-law are present and all parties involved are requesting to go home with hospice care in want to get enrolled in hospice for which the ED informs me case management is aware. The patient states he has lower abdominal pain and when I examined her abdomen the midline lower abdominal region is significantly hard and exquisitely tender and in her discussion the patient informs me the last bowel movement she had was three weeks ago. Multiple bowel hygiene regimen medications are ordered and a KUB due to the severity of the exam I have held off an enema to avoid perforation of the bowel. KUB has been obtained. The patient has severe leukocytosis on admission was secondary to myelodysplastic syndrome the patient had acute stage five renal failure initially ED IV fluids were administered which were discontinued on the . The patient is admitted for comfort care and thus serial labs were not obtained. On the morning of the when I evaluated the patient she was sleeping as well as on the morning of the . I received a page by the patient's RN Javier that the patient has a at 2:57 p.m. please see today's progress note for physical exam The family has a elected [facility]. The electronic certificate work sheet has been completed prior to the dictation of this discharge summary. *Problems/Diagnosis: (1) Myelodysplastic syndrome Total Time Spent on D/C: Up to 30 Minutes (NA) Date of Service: Sep 29, 2025 Billing Provider: KWESI BORGES DO Common Visit Codes: NOT BILLABLE KWESI BORGES DO Sep 29, 2025 15:15
== END 2025-09-29 17:47 | DRG 811 ==
LOC: ER 12:50 → ED HOLD 17:39 → SUR 3N 22:18
PROVIDERS: ADMIT Family Medicine; ATTEND Family Medicine
DX: D46.9 Myelodysplastic syndrome, unspecified (principal); J96.00 Acute respiratory failure, unspecified whether with hypoxia or hypercapnia; Z51.5 Encounter for palliative care; Z66 Do not resuscitate; I12.0 Hypertensive chronic kidney disease with stage 5 chronic kidney disease or end stage renal disease; N18.5 Chronic kidney disease, stage 5; N17.9 Acute kidney failure, unspecified; E11.22 Type 2 diabetes mellitus with diabetic chronic kidney disease; I10 Essential (primary) hypertension; R62.7 Adult failure to thrive; K59.00 Constipation, unspecified; E86.0 Dehydration; Z96.652 Presence of left artificial knee joint; E78.00 Pure hypercholesterolemia, unspecified; K21.9 Gastro-esophageal reflux disease without esophagitis; M10.9 Gout, unspecified; Z68.22 Body mass index [BMI] 22.0-22.9, adult
CPT/HCPCS: 36415; 74018; 80053; 82150; 83690; 85007; 85025; 87081; 99285; A4314; A4615; A6213; G0378; J0780; J2270; J2405; J2765; J7030